=== PATIENT | female | born 1935 | race Caucasian/White ===

== ENCOUNTER 2017-04-02 06:54 | Observation (INO) | payer MEDICARE, OTHER ==
[~2017-04-02] VITALS: Ht 157.5 cm; Wt 52.3 kg
[~2017-04-02 06:54] MED LIST: CARV25TA79 PO; LEVO75TA5 PO; LOSA50TA6 PO; MEVA40 PO; PANT40TA4 PO; WARF4TAB52 PO
[2017-04-02] MEDS ORDERED: morphine 4 MG/ML VIAL IV STA (07:10)
[2017-04-02] MEDS ORDERED: ONDANSETRON 4 MG INJ IV STA (07:10)
[2017-04-02] MEDS ORDERED: SOD CHLORIDE 0.9% 1,000 ML IV STA (07:10)
--- NOTE | 2017-04-02 07:24 | ERA ---
ER Documentation Chief Complaint Date/Time DATE: 04/02/17 TIME: 07:23 Chief Complaint SYNCOPAL EPISODE WITH R ARM PAIN. NO NEURO DEF. NO CP OR SOB. HPI 82-year-old woman brought in by EMS for syncopal episode while at her boarding care facility. She states it occurred after getting up from bed she felt extremely dizzy and then fell back down onto her bed injuring her right thigh. She was unable to ambulate after the syncopal episode. There was no loss of bowel or bladder control, no recent fevers or chills, no complaints of chest pain or shortness of breath. Patient was transported here by EMS without further complications. ROS All systems reviewed and are negative except as per history of present illness. Medications Home Meds Reported Medications Warfarin Sodium* (Coumadin*) 2 Mg Tablet, 2 MG PO DAILY, TAB EXCEPT NONE ON Friday04/02/17 Levothyroxine Sodium* (Levothyroxine Sodium*) 75 Mcg Tablet, 75 MCG PO BEFORE BREAKFAST, #30 TAB 06/28/16 Pantoprazole* (Pantoprazole*) 40 Mg Tablet.dr, 40 MG PO DAILY, TAB 06/28/16 Losartan Potassium* (Losartan Potassium*) 50 Mg Tablet, 50 MG PO DAILY, TAB 06/28/16 Discontinued Reported Medications Lovastatin (Lovastatin) 40 Mg Tablet, 40 MG PO HS, TAB 06/28/16 Warfarin Sodium* (Warfarin Sodium*) 4 Mg Tablet, 2 MG PO DAILY, TAB 06/28/16 Carvedilol* (Carvedilol*) 25 Mg Tablet, 25 MG PO BID, #60 TAB 06/28/16 Allergies Allergies: Coded Allergies: No Known Allergy (Unverified , 04/02/17) PMhx/Soc Previous ST elevation myocardial infarction status post PCI, anemia, acute kidney injury, hypothyroidism, hypertension, previous spine surgery, paroxysmal atrial fibrillation, left ventricular dysfunction Anesthesia Reaction: No Hx Neurological Disorder: No Hx Respiratory Disorders: No Hx Cardiac Disorders: Yes (HTN, Pacemaker) Hx Psychiatric Problems: No Hx Alcohol Use: No Hx Substance Use: No Hx Tobacco Use: No FmHx Family History: No diabetes Physical Exam Vitals Vital Signs Date Time Temp Pulse Resp B/P Pulse Ox O2 Delivery O2 Flow Rate FiO2 04/02/17 09:29 70 18 151/75 98 Room Air 04/02/17 07:08 98.0 71 20 161/69 98 Physical Exam GENERAL: Well-developed, well-nourished, well-hydrated, in no apparent distress , looks nontoxic in appearance HEENT: Pale conjunctiva, dry mucous membranes, no cervical spine tenderness or step-off deformities, no goiter, no jaundice or icterus, extraocular movements intact without pain. No submandibular induration, and no pharyngeal erythema NEURO: Alert and oriented 3, cranial nerves II through XII intact bilaterally, pupils equal round reactive to light, no focal deficits or facial asymmetry, sensation intact distally Strength 5/5 in upper and lower extremities bilaterally CARDIAC: Regular rate and rhythm, no murmurs rubs or gallops LUNGS: Clear bilaterally no wheezing crackles or stridor ABDOMEN: Soft nontender, no guarding, no rigidity, no rebound, no psoas sign no obturator sign. Normoactive bowel sounds SKIN: Warm and dry to touch, no abrasions, contusions, or hematomas, no lacerations, no ecchymosis, no target lesions, and without ulcers EXTREMITIES: No clubbing cyanosis or edema, calves are bilaterally symmetrical, no Homans sign, no popliteal cord sign. Distal pulses equal and bilateral PSYCH: Normal affect without agitation or irritability Result Diagram: 04/02/1771904/02/17 07 Results 24 hrs Laboratory Tests Test 04/02/17 07:20 04/02/17 08:00 White Blood Count 11.810^3/ul Red Blood Count 3.3110^6/ul Hemoglobin 10.4g/dl Hematocrit 31.4% Mean Corpuscular Volume 94.9fl Mean Corpuscular Hemoglobin 31.4pg Mean Corpuscular Hemoglobin Concent 33.1g/dl Red Cell Distribution Width 13.5% Platelet Count 69889^3/UL Mean Platelet Volume 11.6fl Neutrophils % 75.8% Lymphocytes % 17.0% Monocytes % 5.8% Eosinophils % 0.8% Basophils % 0.3% Nucleated Red Blood Cells % 0.0/100WBC Neutrophils # 9.010^3/ul Lymphocytes # 2.010^3/ul Monocytes # 0.710^3/ul Eosinophils # 0.110^3/ul Basophils # 0.010^3/ul Nucleated Red Blood Cells # 0.010^3/ul Prothrombin Time 20.6Sec Prothrombin Time Ratio 1.6 INR International Normalized Ratio 1.75 Sodium Level 145mmol/L Potassium Level 4.6mmol/L Chloride Level 108mmol/L Carbon Dioxide Level 26mmol/L Anion Gap 16 Blood Urea Nitrogen 22mg/dl Creatinine 0.93mg/dl Glucose Level 109mg/dl Calcium Level 10.1mg/dl Total Bilirubin 0.5mg/dl Direct Bilirubin 0.00mg/dl Indirect Bilirubin 0.5mg/dl Aspartate Amino Transf (AST/SGOT) 45IU/L Alanine Aminotransferase (ALT/SGPT) 29IU/L Alkaline Phosphatase 41IU/L Troponin I < 0.012ng/ml Total Protein 7.4g/dl Albumin 4.5g/dl Globulin 2.90g/dl Albumin/Globulin Ratio 1.55 Lipase 83U/L Urine Color LT. YELLOW Urine Clarity CLEAR Urine pH 7.5 Urine Specific [place] 1.010 Urine Ketones NEGATIVE Urine Nitrite NEGATIVE Urine Bilirubin NEGATIVE Urine Urobilinogen 0.2 E.U./dL Urine Leukocyte Esterase NEGATIVE Urine Microscopic RBC 5-10/HPF Urine Microscopic WBC 5-10/HPF Urine Epithelial Cells MODERATE Urine Bacteria MANY Urine Hemoglobin NEGATIVE Urine Glucose NEGATIVE% Urine Total Protein TRACE Current Medications Medications (Trade) Dose Ordered Sig/Rajwinder Route PRN Reason Start Time Stop Time Status Last Admin Dose Admin Sodium Chloride (NS) 1,000 ml @ 1,000 mls/hr Q1H STAT IV 04/02/17 07:10 04/02/17 08:09 DC 04/02/17 07:26 Morphine Sulfate (morphine) 4 mg ONCE STAT IV 04/02/17 07:10 04/02/17 07:13 DC 04/02/17 07:23 Ondansetron HCl (Zofran Inj) 4 mg ONCE STAT IV 04/02/17 07:10 04/02/17 07:13 DC 04/02/17 07:22 Hydromorphone HCl (Dilaudid) 1 mg ONCE STAT IV 04/02/17 08:23 04/02/17 08:24 DC 04/02/17 08:28 Procedures/[facility] IV line was established patient was placed on patient monitor rhythm strip revealed a sinus rhythm at about 70 bpm with upright P and T waves. Patient was afebrile. EKG performed, read by me: 70 bpm, normal sinus rhythm, normal axis, no acute ST segment changes, narrow QRS complex, with good R-wave progression in precordial leads. One view chest x-ray performed, read by me there is a pacemaker in the right chest and atelectatic changes bilaterally, no acute infiltrates, no pneumothorax. I treated the patient for dehydration using 1 L normal saline intravenously, she also received morphine 4 mg IV and Zofran 4 mg IV for hip pain. She later required hydromorphone 1 mg IV. X-ray right femur 2V Interpreted by me: Bones: No fracture Joints: No dislocation Foreign body: None X-ray Pelvis 1V Interpreted by me: Bones: No fracture Joints: No dislocation Foreign body: None CBC revealed mild anemia with a hemoglobin of 10, electrolytes revealed dehydration with a BUN/creatinine of 22/0.9, liver function tests are normal, troponin was negative. Urine analysis was negative for infection. Patient will be admitted to telemetry setting for continued medical management, rehydration, and cardiology consultation Departure Diagnosis: Primary Impression: Syncope Qualified Code: R55 - Syncope, unspecified syncope type Additional Impressions: Dehydration Hip sprain Qualified Code: S73.101A - Hip sprain, right, initial encounter Unable to ambulate Condition: SAUMYA Israel MD Apr 02, 2017 07:24
[2017-04-02 07:54] LABS: ADD SCAN DIFF NO
[2017-04-02 07:56] LABS: BASOPHILS % 0.3 % (0.0-2.0); EOSINOPHILS # 0.1 10^3/ul (0.0-0.5); EOSINOPHILS % 0.8 % (0.0-7.0); HEMATOCRIT 31.4 % (37.0-47.0); HEMOGLOBIN 10.4 g/dl (12.0-16.0); MEAN CORPUSCULAR HEMOGLOBIN 31.4 pg (29.0-33.0); MEAN CORPUSCULAR HGB CONC 33.1 g/dl (32.0-37.0); MEAN CORPUSCULAR VOLUME 94.9 fl (82.0-101.0); MEAN PLATELET VOLUME 11.6 fl (7.4-10.4); MONOCYTE # 0.7 10^3/ul (0.3-0.9); MONOCYTES % 5.8 % (0.0-11.0); NEUTROPHILS % 75.8 % (39.0-77.0); PLATELET COUNT 238 10^3/UL (140-415); RED BLOOD COUNT 3.31 10^6/ul (4.20-5.40); RED CELL DISTRIBUTION WIDTH 13.5 % (11.5-14.5); WHITE BLOOD COUNT 11.8 10^3/ul (4.8-10.8)
--- NOTE | 2017-04-02 07:57 | RADRPT ---
PROCEDURE: XR Chest. CLINICAL INDICATION: fall TECHNIQUE: Single frontal view of the chest was obtained. COMPARISON: Chest x-ray from 09/11/2013 FINDINGS: A right -sided pacemaker is again noted. The aortic arch is calcified. The heart and mediastinum are within normal limits. The lungs are hyperexpanded with flattening of the diaphragm. Mild prominence of interstitial markings is likely due to chronic / senescent changes. No definite focal infiltrates are identified. There is no significant pleural effusion or pneumothorax. IMPRESSION: Hyperexpanded lungs without focal infiltrates or effusions. Correlation for COPD is recommended. Right-sided pacemaker. Aortic atherosclerosis. RPTAT: EE Physician Rosa Date Time Electronically viewed and signed by Elias Flores Physician on 04/02/2017 07:57 /
--- NOTE | 2017-04-02 07:59 | RADRPT ---
PROCEDURE: Pelvis x-ray CLINICAL INDICATION: Pain TECHNIQUE: Single AP view of the pelvis performed. COMPARISON: None FINDINGS: Posterior spinal fusion hardware and disk spacers are noted in the lumbar spine. There is decreased osseous mineralization. No fracture or osseous lesion identified. There are moderate degenerative changes of bilateral hip joints including joint space narrowing. Unremarkable soft tissues. RPTAT: AA IMPRESSION: Decreased osseous mineralization without evidence of acute fracture. Moderate degenerative changes of bilateral hip joints. Spinal fusion hardware in the lumbar spine. Physician Rosa Date Time Electronically viewed and signed by Elias Flores Physician on 04/02/2017 07:59 /
[2017-04-02 08:15] LABS: ALANINE AMINOTRANSFERASE 29 IU/L (13-69); ALBUMIN 4.5 g/dl (3.3-4.9); ALBUMIN/GLOBULIN RATIO 1.55; ALKALINE PHOSPHATASE 41 IU/L (42-121); ANION GAP 16 (8-16); ASPARTATE AMINO TRANSFERASE 45 IU/L (15-46); BILIRUBIN,INDIRECT 0.5 mg/dl (0-1.1); BILIRUBIN,TOTAL 0.5 mg/dl (0.2-1.3); BLOOD UREA NITROGEN 22 mg/dl (7-20); CALCIUM 10.1 mg/dl (8.4-10.2); CARBON DIOXIDE 26 mmol/L (21-31); CHLORIDE 108 mmol/L (97-110); CREATININE 0.93 mg/dl (0.44-1.00); GLUCOSE 109 mg/dl (70-220); POTASSIUM 4.6 mmol/L (3.5-5.1); SODIUM 145 mmol/L (135-144); TOTAL PROTEIN 7.4 g/dl (6.1-8.1)
[2017-04-02 08:22] LABS: INR 1.75; PROTIME 20.6 Sec (12.2-14.2); PT RATIO 1.6
[2017-04-02] MEDS ORDERED: HYDROmorphONE 1 MG/ML SYG IV STA (08:23)
[2017-04-02 08:29] LABS: TROPONIN-I < 0.012 ng/ml (0.00-0.12)
[2017-04-02 08:45] LABS: ADD UMIC YES; UR BILIRUBIN (Dip) NEGATIVE (NEGATIVE); UR BLOOD (Dip) NEGATIVE (NEGATIVE); UR CLARITY CLEAR (CLEAR); UR COLOR LT. YELLOW (YELLOW); UR GLUCOSE (Dip) NEGATIVE (NEGATIVE); UR KETONES (Dip) NEGATIVE (NEGATIVE); UR LEUKOCYTE ESTERASE (Dip) NEGATIVE (NEGATIVE); UR NITRITE (Dip) NEGATIVE (NEGATIVE); UR TOTAL PROTEIN (Dip) TRACE (NEGATIVE); UR UROBILINOGEN (Dip) 0.2 E.U./dL (0.1-1.0)
--- NOTE | 2017-04-02 09:05 | RADRPT ---
PROCEDURE: XR Right Femur CLINICAL INDICATION: Pain status post fall TECHNIQUE: AP and lateral radiographs were submitted. COMPARISON: None FINDINGS: Osseous structures: appear well mineralized and intact with no fracture or osseous destruction evid ent. Fixation hardware is seen within the sacrum. There is a traction spur off the anterior superio r patella. Joint spaces: are well maintained with no significant erosion or spurring evident. There is no sig nificant joint effusion Soft tissues: Vascular calcifications noted. A Lucero catheter is in place. IMPRESSION: 1. No acute fracture or dislocation is evident. 2. Fixation hardware seen within the sacrum. 3. Traction spur seen off the anterior superior patella. Physician Oneil Date Time Electronically viewed and signed by Physician Oneil on 04/02/2017 09:05 /
[2017-04-02 09:15] LABS: UR BACTERIA MANY
[2017-04-02] MEDS ORDERED: WARF2TAB PO (09:20)
--- NOTE | 2017-04-02 11:18 | CONS ---
Date/Time of Note Date/Time of Note DATE: 04/02/17 TIME: 11:10 Assessment/Plan Assessment/Plan Additional Assessment/Plan Syncope Paroxysmal atrial fibrillation on anticoagulation History of pacemaker Hypertension Possible dehydration/hypovolemia -On review of laboratory studies, patient with mild hypernatremia and elevated BUN/creatinine ratio concerning for hypovolemia. We order gentle IV hydration. Patient with pacemaker, would request interrogation (SustainU device) . Check echocardiogram, continue telemetry monitoring to rule out any arrhythmias. Consultation Date/Type/Reason Admit Date/Time Type of Consultation: cv Reason for Consultation Syncope Hx of Present Illness This is an 82-year-old female with past medical history of paroxysmal atrial fibrillation on anticoagulation, pacemaker, hypertension who presents after a syncopal episode. Patient woke up this morning in her normal state of health. She got up out of bed and was arranging her closed with a day. While doing this , she became lightheaded with dizziness. She denies any shortness of breath or palpitations. She felt that she was near "passing out" so she walked to the bed and lie down. She thinks she lost consciousness. When she woke up, she was sweaty but denied any tongue trauma, incontinence. She lives in assisted living and contacted the facility and she was brought to the emergency room for further evaluation and care. She feels much better now and denies any complaints of dizziness, lightheadedness. She denies exertional chest pain or shortness of breath. She denies any abdominal pain. She has been complaining of a hoarse voice off and on. 12 point review of systems was performed with all pertinent positives and negatives mentioned above and all else is negative Past Medical History Paroxysmal atrial fibrillation Hypertension Past Surgical History Pacemaker Spine surgery Family History Significant Family History: no pertinent family hx Social History Smoking Status: Never smoker Other Social History Lives in assisted living Exam/Review of Systems Vital Signs Vitals Vital Signs Date Time Temp Pulse Resp B/P Pulse Ox O2 Delivery O2 Flow Rate FiO2 04/02/17 09:29 70 18 151/75 98 Room Air 04/02/17 07:08 98.0 Exam No apparent distress Constitutional: alert, frail, oriented Head: normocephalic Neck: supple Respiratory: clear to auscultation, normal air movement Cardiovascular: other (S1-S2 heard), regular rate and rhythm, systolic murmur ( Faint early peaking systolic murmur) Gastrointestinal: bowel sounds, non-tender, other (No guarding), soft Extremities: edema (No), other (No cyanosis) Results Result Diagram: 04/02/17 0720 04/02/17 0720 Results 24 hrs Laboratory Tests Test 04/02/17 07:20 04/02/17 08:00 White Blood Count 11.8 H Red Blood Count 3.31 L Hemoglobin 10.4 L Hematocrit 31.4 L Mean Corpuscular Volume 94.9 Mean Corpuscular Hemoglobin 31.4 Mean Corpuscular Hemoglobin Concent 33.1 Red Cell Distribution Width 13.5 Platelet Count 238 Mean Platelet Volume 11.6 #H Neutrophils % 75.8 Lymphocytes % 17.0 Monocytes % 5.8 Eosinophils % 0.8 Basophils % 0.3 Nucleated Red Blood Cells % 0.0 Neutrophils # 9.0 H Lymphocytes # 2.0 Monocytes # 0.7 Eosinophils # 0.1 Basophils # 0.0 Nucleated Red Blood Cells # 0.0 Prothrombin Time 20.6 H Prothrombin Time Ratio 1.6 INR International Normalized Ratio 1.75 Sodium Level 145 H Potassium Level 4.6 Chloride Level 108 Carbon Dioxide Level 26 Anion Gap 16 Blood Urea Nitrogen 22 H Creatinine 0.93 Glucose Level 109 Calcium Level 10.1 Total Bilirubin 0.5 Direct Bilirubin 0.00 Indirect Bilirubin 0.5 Aspartate Amino Transf (AST/SGOT) 45 Alanine Aminotransferase (ALT/SGPT) 29 Alkaline Phosphatase 41 L Troponin I < 0.012 Total Protein 7.4 Albumin 4.5 Globulin 2.90 Albumin/Globulin Ratio 1.55 Lipase 83 Urine Color LT. YELLOW Urine Clarity CLEAR Urine pH 7.5 Urine Specific [place] 1.010 Urine Ketones NEGATIVE Urine Nitrite NEGATIVE Urine Bilirubin NEGATIVE Urine Urobilinogen 0.2 E.U./dL Urine Leukocyte Esterase NEGATIVE Urine Microscopic RBC 5-10 Urine Microscopic WBC 5-10 Urine Epithelial Cells MODERATE Urine Bacteria MANY Urine Hemoglobin NEGATIVE Urine Glucose NEGATIVE Urine Total Protein TRACE Procedures Procedures ECG with a paced rhythm at 70 bpm. QRS 84 ms, no significant ischemic STT wave abnormalities Malik Johansen DO Apr 02, 2017 11:18
[2017-04-02] MEDS ORDERED: SOD CHLORIDE 0.9% 1,000 ML IV SCH (11:23)
--- NOTE | 2017-04-02 11:50 | RADRPT ---
Echocardiogram Report Patient Name: ANASTASIYA SCOTT Gender: Female Date: 1935 Study Date: 02-Apr-2017 Upper Cutter Machine: Krissy [facility] Location: [facility] Ref. Physician: MALIK JOHANSEN Quality: Adequate Procedures: Transthoracic echocardiogram with complete 2D, M-Mode, and doppler examination. Indications: Syncope. 2D/M Mode Doppler Measurement Value Normal Ranges Measurement Value Normal Ranges LVIDd 2D 4.6 3.5 - 5.6 cm AV Peak Alok 1.3 m/sec LVIDs 2D 3.6 2.1 - 4.1 cm AV Peak PG 7.0 mmHg LVPWd 2D 0.9 0.6 - 1.1 cm LVOT Peak Alok 0.9 m/sec IVSd 2D 0.9 0.6 - 1.1 cm LVOT Peak PG 3.4 mmHg AoR Diam 2D 2.1 2.0 - 3.7 cm MV E Peak Alok 0.7 m/sec EDV 2D 97.0 cm3 MV A Peak Alok 0.8 m/sec ESV 2D 45.7 cm3 MV E/A 0.8 LA Dimen 2D 3.4 2.3 - 4.0 cm MV Decel Time 227 msec MV Decel Coffee 3 MV E/A 0.8 TR Peak Alok 3.1 m/sec TR Peak PG 38.2 mmHg RVSP 41.0 mmHg Findings Left Ventricle: Normal left ventricular systolic function. Normal left ventricular cavity size. Normal left ventricular wall thickness. Ejection fraction is visually estimated at 55 %. Tissue Doppler/Mitral Doppler indices are consistent with impaired relaxation (Stage I diastolic dysfunction). Right Ventricle: Normal right ventricular size. Normal right ventricular systolic function. Pacemaker right heart. Left Atrium: The left atrium is normal in size. Right Atrium: The right atrium is normal in size. Mitral Valve: Mitral valve leaflets appear mildly thickened. Mild mitral valve regurgitation. Aortic Valve: Normal appearance of the aortic valve. No significant aortic stenosis or insufficiency. Tricuspid Valve: Normal appearance of the tricuspid valve. Estimated peak PA systolic pressure 41 mmHg. There is mild tricuspid regurgitation. Pericardium: Normal pericardium with no significant pericardial effusion. Aorta: Normal aortic root. IVC: Normal size and normal respiratory collapse consistent with normal right atrial pressure. Conclusions Normal left ventricular systolic function. Normal left ventricular cavity size. Normal left ventricular wall thickness. Ejection fraction is visually estimated at 55 %. Tissue Doppler/Mitral Doppler indices are consistent with impaired relaxation (Stage I diastolic dysfunction). Normal right ventricular size. Normal right ventricular systolic function. The left atrium is normal in size. The right atrium is normal in size. Mild mitral valve regurgitation. Estimated peak PA systolic pressure 41 mmHg. There is mild tricuspid regurgitation. No significant aortic stenosis or insufficiency. Normal pericardium with no significant pericardial effusion. Electronically Signed By: Malik Johansen 02-Apr-2017 11:49:01 07 Patient Name: ANASTASIYA SCOTT Study Date: 02-Apr-2017 [id number]
--- NOTE | 2017-04-02 14:28 | HP ---
Date/Time of Note Date/Time of Note DATE: 04/02/17 TIME: 14:16 Assessment/Plan VTE Prophylaxis VTE Prophylaxis Intervention: other (Warfarin) Lines/Catheters Urinary Cath still in place: Yes Reason Cath still needed: urinary retention Assessment/Plan Problems: (1) Syncope Status: Acute Comment: She will be brought into telemetry and observe for this. Cardiology will evaluate her. I am not entirely certain of the etiology of this but suspect it may have been a dehydrational event. Qualifiers: Syncope type: unspecified Qualified Code: R55 - Syncope, unspecified syncope type (2) Dehydration Status: Acute Comment: Brief IV fluids careful with her ejection fraction. Please note that she actually does have reasonable ejection fraction based on echocardiogram read today she does however have diastolic dysfunction (3) Hypothyroidism Status: Chronic Comment: Continue replacement therapy Qualifiers: Hypothyroidism type: acquired Qualified Code: E03.9 - Acquired hypothyroidism (4) Atrial fibrillation Status: Chronic Comment: She has a pacemaker in place we can use low-dose beta-silvia Qualifiers: Atrial fibrillation type: chronic Qualified Code: I48.2 - Chronic atrial fibrillation (5) Gastro-esophageal reflux disease without esophagitis Status: Chronic Comment: Continue pantoprazole (6) Chronic systolic congestive heart failure Status: Chronic Comment: Based on the echocardiogram the strength of this diagnosis is fair. This is a bit more of diastolic dysfunction. (7) Essential hypertension Status: Chronic Comment: Controlled HPI/ROS Admit Date/Time Admit Date/Time 04/02/2017 Hx of Present Illness 82-year-old single female who now resides at the [facility] [place]. She has moved in their 6 weeks ago after having extended stay in rehab facility after spinal surgery by Dr. Crespo in June 2016. She remains under active treatment with Dr. Duffy and has a new primary care physician Dr. Carrasco. She has a history of prior episodes of syncope. These had resolved when she received a pacemaker. She had otherwise done well. Please note she is not a good historian. Attempts to retrieve information from her primary care physician were on successful as has been on hold for 15 minutes. ROS Constitutional: no complaints Eyes: no complaints ENT: no complaints Respiratory: no complaints Cardiovascular: no complaints (Denies chest pain shortness of breath PND orthopnea or palpitations) Gastrointestinal: no complaints Genitourinary: no complaints Psychological: no complaints Immunologic: no complaints PMH/Family/Social Past Medical History Atrial fibrillation; osteoporosis; hyperlipidemia; usual childhood diseases Medication 1) levothyroxine 75 mcg once a day, 2) pantoprazole 40 mg, 3) Coumadin at variable dosing, 4) losartan 50 mg once a day, 5) Lexapro 10 mg once a day, 6) alprazolam 0.25 mg as needed Medical History: hypertension, hypothyroid Past Surgical History Status post lumbar laminectomy; status post pacemaker Family History Significant Family History: no pertinent family hx (Old history of CVA old history asthma) Social History Born in [place] and raised high school education without experience retired from [employer] she is and now living in a shelter facility [facility] [place]. She has 2 sons there has been issues between the 2 of them Alcohol Use: none Smoking Status: Former smoker Drug Use: none Exam/Review of Systems Vital Signs Vitals Vital Signs Date Time Temp Pulse Resp B/P Pulse Ox O2 Delivery O2 Flow Rate FiO2 04/02/17 12:41 72 18 113/58 95 Room Air 04/02/17 07:08 98.0 Exam Constitutional: alert, oriented Head: atraumatic, normocephalic Eyes: EOMI, nl conjunctiva, nl lids, nl sclera ENMT: nl lips & teeth, nl nasal mucosa & septum Neck: non-tender, supple Respiratory: clear to auscultation, normal air movement, other (Right anterior chest wall subcutaneous pacemaker) Cardiovascular: nl pulses, regular rate and rhythm Gastrointestinal: nl liver, spleen, non-tender, soft Musculoskeletal: nl extremities to inspection, nl gait and stance Neurological: RN WOUND CARE II-XII intact, nl mental status, nl speech, nl strength Skin: nl turgor Labs Result Diagram: 04/02/17 0720 04/02/17 0720 Medications Medications Current Medications Sodium Chloride (NS) 1,000 ml @ 60 mls/hr [id number] IV Last administered on t 11:34; Admin Dose 60 MLS/HR; Start 04/02/17 at 11:23; Stop 04/03/17 at 04:02 DELISA RAJPUT MD Apr 02, 2017 14:26
[2017-04-02] MEDS ORDERED: MAGNESIUM HYDROXIDE 30ML CUP PO PRN (14:30)
[2017-04-02] MEDS ORDERED: LORAZEPAM 0.5 MG TAB PO PRN (14:30)
[2017-04-02] MEDS ORDERED: NACL 0.9% 3 ML SYG IV SCH (14:30)
[2017-04-02] MEDS ORDERED: DOCUSATE SODIUM 100 MG CAP PO PRN (14:30)
[2017-04-02 15:39] LABS: CREATINE KINASE 76 IU/L (23-200)
[2017-04-02 15:53] LABS: CK-MB 2.15 ng/ml (0.0-2.4); TROPONIN-I < 0.012 ng/ml (0.00-0.12)
[2017-04-02] MEDS: METOPROLOL 25 MG TAB PO SCH (20:11)
[2017-04-02] MEDS ORDERED: LEVOTHYROXINE 75 MCG TAB PO SCH (21:00)
[2017-04-02] MEDS ORDERED: ESCITALOPRAM 10 MG TAB PO SCH (21:00)
[2017-04-02 22:15] LABS: CREATINE KINASE 105 IU/L (23-200)
[2017-04-02 22:28] LABS: TROPONIN-I < 0.012 ng/ml (0.00-0.12)
[2017-04-02 22:30] VITALS: PULSE 70
[2017-04-02 22:58] VITALS: Ht 157.5 cm; Wt 52.3 kg
[2017-04-03] VITALS (10 sets, daily range): BP systolic 96–143; BP diastolic 53–65; PULSE 70–74; RESP 18–20
[2017-04-03] MEDS ORDERED: PANTOPRAZOLE (EC) 40 MG TAB PO SCH (06:00)
[2017-04-03 07:46] LABS: ADD SCAN DIFF NO
[2017-04-03 07:55] LABS: BASOPHILS % 0.5 % (0.0-2.0); EOSINOPHILS # 0.1 10^3/ul (0.0-0.5); EOSINOPHILS % 2.2 % (0.0-7.0); HEMATOCRIT 30.1 % (37.0-47.0); HEMOGLOBIN 9.3 g/dl (12.0-16.0); LYMPHOCYTES % 32.7 % (15.0-51.0); MEAN CORPUSCULAR HEMOGLOBIN 30.2 pg (29.0-33.0); MEAN CORPUSCULAR HGB CONC 30.9 g/dl (32.0-37.0); MEAN CORPUSCULAR VOLUME 97.7 fl (82.0-101.0); MEAN PLATELET VOLUME 11.2 fl (7.4-10.4); MONOCYTE # 0.5 10^3/ul (0.3-0.9); NEUTROPHIL # 3.5 10^3/ul (1.6-7.5); NEUTROPHILS % 56.4 % (39.0-77.0); PLATELET COUNT 211 10^3/UL (140-415); RED BLOOD COUNT 3.08 10^6/ul (4.20-5.40); RED CELL DISTRIBUTION WIDTH 13.8 % (11.5-14.5); WHITE BLOOD COUNT 6.2 10^3/ul (4.8-10.8)
[2017-04-03 08:39] LABS: ALBUMIN 3.9 g/dl (3.3-4.9); ALBUMIN/GLOBULIN RATIO 1.77; BILIRUBIN,INDIRECT 0.4 mg/dl (0-1.1); BILIRUBIN,TOTAL 0.4 mg/dl (0.2-1.3); CALCIUM 9.4 mg/dl (8.4-10.2); CREATININE 0.9 mg/dl (0.44-1.00); MAGNESIUM 1.8 mg/dl (1.7-2.5); POTASSIUM 4.4 mmol/L (3.5-5.1); TOTAL PROTEIN 6.1 g/dl (6.1-8.1)
[2017-04-03] MEDS: METOPROLOL 25 MG TAB PO SCH (08:56)
[2017-04-03] MEDS ORDERED: LOSARTAN 50 MG TAB PO SCH (09:00)
[2017-04-03 09:34] LABS: THYROID STIMULATING HORMONE 1.82 MIU/L (0.465-4.680)
--- NOTE | 2017-04-03 13:25 | DS ---
Date/Time of Note Date/Time of Note DATE: 04/03/17 TIME: 13:23 Discharge Summary Admission/Discharge Info Admit Date/Time Apr 02, 2017 at 09:59 Discharge Date/Time 04/03/2017 Final Diagnosis Syncope; organic heart diseasesick sinus syndrome; status post pacemaker; hypothyroidism; hypertension Patient Condition: Good Consults Cardiology Procedures Echocardiogram; cardiac monitoring; rule out [place] protocol. Hx of Present Illness 82-year-old single female who now resides at the [facility]. She has moved in their 6 weeks ago after having extended stay in rehab facility after spinal surgery by Dr. Crespo in June 2016. She remains under active treatment with Dr. Duffy and has a new primary care physician Dr. Carrasco. She has a history of prior episodes of syncope. These had resolved when she received a pacemaker. She had otherwise done well. Please note she is not a good historian. Attempts to retrieve information from her primary care physician were on successful as has been on hold for 15 minutes. Hospital Course This is an 82-year-old female with past medical history of paroxysmal atrial fibrillation on anticoagulation, pacemaker, hypertension who presents after a syncopal episode. Patient woke up this morning in her normal state of health. She got up out of bed and was arranging her closed with a day. While doing this , she became lightheaded with dizziness. She denies any shortness of breath or palpitations. She felt that she was near "passing out" so she walked to the bed and lie down. She thinks she lost consciousness. When she woke up, she was sweaty but denied any tongue trauma, incontinence. She lives in assisted living and contacted the facility and she was brought to the emergency room for further evaluation and care. She feels much better now and denies any complaints of dizziness, lightheadedness. She denies exertional chest pain or shortness of breath. She denies any abdominal pain. She has been complaining of a hoarse voice off and on. Patient was admitted and underwent standard rule out [place] protocol which was negative. Her echocardiogram showed stage I diastolic dysfunction with adequate systolic function. Interrogation of her pacemaker demonstrated normal activity and function. She is stable. I believe what was going on here was a modest degree of dehydration. She is now at a point where she can be discharged back to her skilled living facility. She has no known communicable diseases she is not a hazard to herself or others her rehabilitation potential is fair. Home Meds Reported Medications Warfarin Sodium* (Coumadin*) 2 Mg Tablet, 2 MG PO DAILY, TAB EXCEPT NONE ON Friday04/02/17 Levothyroxine Sodium* (Levothyroxine Sodium*) 75 Mcg Tablet, 75 MCG PO BEFORE BREAKFAST, #30 TAB 06/28/16 Pantoprazole* (Pantoprazole*) 40 Mg Tablet.dr, 40 MG PO DAILY, TAB 06/28/16 Losartan Potassium* (Losartan Potassium*) 50 Mg Tablet, 50 MG PO DAILY, TAB 06/28/16 Discontinued Reported Medications Lovastatin (Lovastatin) 40 Mg Tablet, 40 MG PO HS, TAB 06/28/16 Warfarin Sodium* (Warfarin Sodium*) 4 Mg Tablet, 2 MG PO DAILY, TAB 06/28/16 Carvedilol* (Carvedilol*) 25 Mg Tablet, 25 MG PO BID, #60 TAB 06/28/16 Primary Care Provider Gilson Duffy MD Time spent on discharge: < 30 minutes Pending Labs Laboratory Tests Test 04/02/17 15:00 04/02/17 21:40 04/03/17 07:11 Creatine Kinase 76IU/L (23-200) 105IU/L (23-200) Creatine Kinase Index 2.8 2.6 Creatinine Kinase MB (Mass) 2.15ng/ml (0.0-2.4) 2.70ng/ml (0.0-2.4) Troponin I < 0.012ng/ml (0.00-0.12) < 0.012ng/ml (0.00-0.12) White Blood Count 6.210^3/ul (4.8-10.8) Red Blood Count 3.0810^6/ul (4.20-5.40) Hemoglobin 9.3g/dl (12.0-16.0) Hematocrit 30.1% (37.0-47.0) Mean Corpuscular Volume 97.7fl (82.0-101.0) Mean Corpuscular Hemoglobin 30.2pg (29.0-33.0) Mean Corpuscular Hemoglobin Concent 30.9g/dl (32.0-37.0) Red Cell Distribution Width 13.8% (11.5-14.5) Platelet Count 04162^3/UL (140-415) Mean Platelet Volume 11.2fl (7.4-10.4) Neutrophils % 56.4% (39.0-77.0) Lymphocytes % 32.7% (15.0-51.0) Monocytes % 8.0% (0.0-11.0) Eosinophils % 2.2% (0.0-7.0) Basophils % 0.5% (0.0-2.0) Nucleated Red Blood Cells % 0.0/100WBC (0.0-0.0) Neutrophils # 3.510^3/ul (1.6-7.5) Lymphocytes # 2.010^3/ul (0.8-2.9) Monocytes # 0.510^3/ul (0.3-0.9) Eosinophils # 0.110^3/ul (0.0-0.5) Basophils # 0.010^3/ul (0.0-0.1) Nucleated Red Blood Cells # 0.010^3/ul (0.0-0.0) Sodium Level 142mmol/L (135-144) Potassium Level 4.4mmol/L (3.5-5.1) Chloride Level 108mmol/L (97-110) Carbon Dioxide Level 29mmol/L (21-31) Anion Gap 9 (8-16) Blood Urea Nitrogen 18mg/dl (7-20) Creatinine 0.90mg/dl (0.44-1.00) Glucose Level 92mg/dl (70-220) Calcium Level 9.4mg/dl (8.4-10.2) Magnesium Level 1.8mg/dl (1.7-2.5) Total Bilirubin 0.4mg/dl (0.2-1.3) Direct Bilirubin 0.00mg/dl (0.00-0.20) Indirect Bilirubin 0.4mg/dl (0-1.1) Aspartate Amino Transf (AST/SGOT) 32IU/L (15-46) Alanine Aminotransferase (ALT/SGPT) 30IU/L (13-69) Alkaline Phosphatase 39IU/L (42-121) Total Protein 6.1g/dl (6.1-8.1) Albumin 3.9g/dl (3.3-4.9) Globulin 2.20g/dl (1.3-3.2) Albumin/Globulin Ratio 1.77 Thyroid Stimulating Hormone (TSH) 1.820MIU/L (0.465-4.680) DELISA RAJPUT MD Apr 03, 2017 13:25
--- NOTE | 2017-04-03 13:27 | PDOCDIS ---
Discharge Instructions DIAGNOSIS Discharge Diagnosis: Syncope CONDITION Patient Condition: Good HOME CARE INSTRUCTIONS: Diet Instructions: RegularSpecial Diet: regular ACTIVITY: Activity Restrictions: No Restrictions FOLLOW UP/APPOINTMENTS Appointments Cardiology in 2 weeks; primary care physician in 1 week, DELISA Moura MD Apr 03, 2017 13:27
== END 2017-04-03 16:19 | disposition home or self-care (01) ==
LOC: E/R 06:54 → UNDOADMOB 09:59 → TEL 09:59 → MS4 09:59 → UNDODISOB 04-03 16:19
PROVIDERS: ADMIT Internal Medicine; ATTEND Internal Medicine
DX: R55 Syncope and collapse (principal); I11.0 Hypertensive heart disease with heart failure; I50.22 Chronic systolic (congestive) heart failure; I48.0 Paroxysmal atrial fibrillation; Z79.01 Long term (current) use of anticoagulants; I51.9 Heart disease, unspecified; I49.5 Sick sinus syndrome; I25.2 Old myocardial infarction; E03.9 Hypothyroidism, unspecified; E86.0 Dehydration; K21.9 Gastro-esophageal reflux disease without esophagitis; Z95.0 Presence of cardiac pacemaker
CPT/HCPCS: 36415; 71010; 72170; 73550; 80053; 81001; 82550; 82553; 83690; 83735; 84443; 84484; 85025; 85610; 86850; 86900; 86901; 93005; 93306; 96374; 96375; 99285; G0378; J1170; J2270; J2405; J7030

== ENCOUNTER 2019-04-24 10:16 | Emergency (ER) | payer MEDICARE, OTHER ==
[~2019-04-24] VITALS: Ht 160 cm; Wt 55.3 kg
[~2019-04-24 10:16] MED LIST changes: -CARV25TA79 PO; +LOSA50TA14 PO; -LOSA50TA6 PO; -MEVA40 PO; +WARF2TAB PO; -WARF4TAB52 PO
[2019-04-24 10:27] VITALS: Ht 160 cm; Wt 55.3 kg
[2019-04-24] MEDS ORDERED: ONDANSETRON 4 MG INJ IV STA (12:18)
--- NOTE | 2019-04-24 12:18 | ERD ---
ER Documentation Chief Complaint Chief Complaint nausea and chills x 3 days HPI 84-year-old female history of hypertension, thyroid disease, paroxysmal atrial fib on Coumadin, congestive heart failure, spinal stenosis and pacemaker presents to the ED for evaluation of lightheadedness, with nausea and vomiting. Patient reports a 2 to 3-day history of worsening dizziness which she describes as lightheadedness and not vertiginous symptoms with nausea and one episode of nonbloody nonbilious emesis. Symptoms are accompanied by generalized weakness but no focal weakness or numbness. Denies abdominal pain diarrhea or constipati on. No chest pain, palpitations or shortness of breath. Denies dysuria, polyuria, hematuria or flank pain. No relieving or exacerbating factors. No fevers or chills. ROS All systems reviewed and are negative except as per history of present illness. Medications Home Meds Reported Medications Lovastatin* (Lovastatin*) 20 Mg Tablet, 20 MG PO HS, TAB 04/24/19 Levothyroxine Sodium* (Levothyroxine Sodium*) 50 Mcg Tablet, 50 MCG PO BEFORE BREAKFAST, #30 TAB 04/24/19 Escitalopram Oxalate* (Escitalopram Oxalate*) 10 Mg Tablet, 10 MG PO DAILY, #30 TAB 04/24/19 Warfarin Sodium* (Coumadin*) 1 Mg Tablet, 1 MG PO DAILY, TAB 04/24/19 Pantoprazole* (Pantoprazole*) 40 Mg Tablet.dr, 40 MG PO AC BREAKFAST, TAB 04/24/19 Discontinued Reported Medications Warfarin Sodium* (Coumadin*) 2 Mg Tablet, 2 MG PO DAILY, TAB EXCEPT NONE ON Friday04/02/17 Levothyroxine Sodium* (Levothyroxine Sodium*) 75 Mcg Tablet, 75 MCG PO BEFORE BREAKFAST, #30 TAB 06/28/16 Pantoprazole* (Pantoprazole*) 40 Mg Tablet.dr, 40 MG PO DAILY, TAB 06/28/16 Losartan Potassium* (Losartan Potassium*) 50 Mg Tablet, 50 MG PO DAILY, TAB 06/28/16 Allergies Allergies: Coded Allergies: No Known Allergy (Unverified , 04/24/19) PMhx/Soc History of Surgery: Yes (pacemaker ,LAMINECTOMY 2016,STENT) Anesthesia Reaction: No Hx Neurological Disorder: No Hx Respiratory Disorders: No Hx Cardiac Disorders: Yes (HTN, HIGH CHOLESTEROL) Hx Psychiatric Problems: No Hx Miscellaneous Medical Probl: Yes (HYPOTHYROIDISM) Hx Alcohol Use: No Hx Substance Use: No Hx Tobacco Use: No Smoking Status: Never smoker FmHx No family history relevant to presenting complaint Physical Exam Vitals Vital Signs Date Temp Pulse Resp B/P (MAP) Pulse Ox O2 O2 Flow FiO2 Time Delivery Rate 04/24/19 99.4 81 15 147/99 96 Room Air 15:00 (115) 04/24/19 99.6 70 16 148/64 97 Room Air 13:00 (92) 04/24/19 99.8 81 16 159/58 95 10:27 (91) Physical Exam Const: No acute distress Head: Atraumatic Eyes: Normal Conjunctiva ENT: Normal External Ears, Nose and Mouth. Neck: Full range of motion. No meningismus. Resp: Clear to auscultation bilaterally Cardio: Regular rate and rhythm, no murmurs Abd: Soft, non tender, non distended. Normal bowel sounds Skin: No petechiae or rashes Back: No midline or flank tenderness Ext: No cyanosis, or edema Neur: Awake and alert Psych: Normal Mood and Affect Result Diagram: 04/24/19 1220 04/24/19 1220 Results 24 hrs Laboratory Tests Test 04/24/19 12:20 White Blood Count 7.0 10^3/ul Red Blood Count 3.60 10^6/ul Hemoglobin 11.1 g/dl Hematocrit 34.1 % Mean Corpuscular Volume 94.7 fl Mean Corpuscular Hemoglobin 30.8 pg Mean Corpuscular Hemoglobin Concent 32.6 g/dl Red Cell Distribution Width 13.4 % Platelet Count 241 10^3/UL Mean Platelet Volume 10.6 fl Immature Granulocytes % 0.300 % Neutrophils % 76.7 % Lymphocytes % 19.2 % Monocytes % 3.4 % Eosinophils % 0.1 % Basophils % 0.3 % Nucleated Red Blood Cells % 0.0 /100WBC Immature Granulocytes # 0.020 10^3/ul Neutrophils # 5.4 10^3/ul Lymphocytes # 1.4 10^3/ul Monocytes # 0.2 10^3/ul Eosinophils # 0.0 10^3/ul Basophils # 0.0 10^3/ul Nucleated Red Blood Cells # 0.0 10^3/ul Prothrombin Time 24.2 Sec Prothrombin Time Ratio 1.9 INR International Normalized Ratio 2.16 Urine Color YELLOW Urine Clarity CLEAR Urine pH 5.0 Urine Specific [place] 1.021 Urine Ketones NEGATIVE mg/dL Urine Nitrite NEGATIVE mg/dL Urine Bilirubin NEGATIVE mg/dL Urine Urobilinogen NEGATIVE mg/dL Urine Leukocyte Esterase NEGATIVE Michelle/ul Urine Hemoglobin NEGATIVE mg/dL Urine Glucose NEGATIVE mg/dL Urine Total Protein NEGATIVE mg/dl Sodium Level 142 mmol/L Potassium Level 4.2 mmol/L Chloride Level 106 mmol/L Carbon Dioxide Level 27 mmol/L Anion Gap 9 Blood Urea Nitrogen 21 mg/dl Creatinine 1.30 mg/dl Est Glomerular Filtrat Rate mL/min mL/min Glucose Level 109 mg/dl Calcium Level 9.7 mg/dl Total Bilirubin 0.4 mg/dl Direct Bilirubin 0.00 mg/dl Indirect Bilirubin 0.4 mg/dl Aspartate Amino Transf (AST/SGOT) 30 IU/L Alanine Aminotransferase (ALT/SGPT) 25 IU/L Alkaline Phosphatase 40 IU/L Troponin I < 0.012 ng/ml Total Protein 7.8 g/dl Albumin 4.5 g/dl Globulin 3.30 g/dl Albumin/Globulin Ratio 1.36 Lipase 210 U/L Current Medications Medications Dose Sig/Rajwinder Start Time Status Last (Trade) Ordered Route PRN Stop Time Admin Dose Reason Admin Ondansetron 4 mg ONCE STAT 04/24/19 DC 04/24/19 HCl (Zofran IV 12:18 12:26 Inj) 04/24/19 12:20 Procedures/MDM DOCUMENTS REVIEWED: ED nurse, prior ED and prior records including a previous admission for syncope EKG: Time: 1244. Atrial paced rhythm. No acute ST elevation or depression. No ectopy. My Interpretation IMAGING: PROCEDURE: XR Chest. CLINICAL INDICATION: Abdominal pain TECHNIQUE: Frontal chest x-ray was obtained. COMPARISON: Chest x-ray September 11, 2013 FINDINGS: The heart is not enlarged. Mediastinum is not widened. Noted is a dual lead pacemaker. There are coronary artery calcifications. Calcified plaque is seen in the aorta. No hilar masses seen. Lungs are clear of any infiltrates. There is no effusion or pneumothorax. The osseous structures appear normal. IMPRESSION: No evidence for active cardiopulmonary disease. .Prosper Clark MD, MD Date Time Electronically viewed and signed by .Prosper Clark MD, MD on 04/24/2019 13:05 .A/ PROCEDURE: CT Brain without contrast. CLINICAL INDICATION: Dizziness TECHNIQUE: A CT of the brain was performed on a multidetector CT scanner utilizing axial imaging from the skull base through the vertex without IV contrast. Multiplanar reformatted images were made. Images were reviewed on a PACS workstation. The CTDIvol is 38 mGy and the DLP is 634 mGycm. DICOM images are available. One or more of the following dose reduction techniques were utilized: 1.) Automated exposure control 2.) Adjustment of the mA +/- kV according to patient's size 3.) Use of iterative reconstruction technique. COMPARISON: None FINDINGS: There is no intracranial hemorrhage or midline shift. No extra-axial fluid collection is seen. There is moderate to severe diffuse cerebral volume loss with sulcal and ventricular dilatation. Periventricular white matter disease is seen in both cerebral hemispheres with no associated mass effect. Noted is a 19 mm well-demarcated isotope hyperdense spherical mass interposed between the medial aspect of the right temporal lobe and the mid brain adjacent to the petrous portion of the temporal bone. This most likely represents a meningioma. There is no associated vasogenic edema or significant mass effect. Ventricles are of normal configuration. the liz white matter differentiation appears well- preserved. No hemorrhage is detected. The visualized paranasal sinuses and osseous structures are grossly unremarkable. IMPRESSION: No intracranial hemorrhage or evidence of acute transcortical infarct. Atrophy. White matter disease compatible with chronic small vessel ischemia. Probable 19 mm meningioma interposed between right temporal lobe and mid brain. Pre and post contrast MRI could be performed for more definitive diagnosis if clinically indicated. .Prosper Clark MD, MD Date Time Electronically viewed and signed by .Prosper Clark MD, MD on 04/24/2019 13:11 .A/ ED COURSE: [] REEXAMINATION/REEVALUATION: Time: [] MEDICAL DECISION MAKIN-year-old female history of hypertension, thyroid disease, paroxysmal atrial fib on Coumadin, congestive heart failure, spinal stenosis and pacemaker presents to the ED for evaluation of lightheadedness, with nausea and vomiting. Patient reports a 2 to 3-day history of worsening dizziness which he describes as lightheadedness and not vertiginous symptoms with nausea and one episode of nonbloody nonbilious emesis. CBC reveals borderline anemia but no leukocytosis or thrombocytopenia. Chemistry remarkable for elevated BUN/creatinine consistent with mild acute kidney disease likely secondary to dehydration. CT of the brain with findings above reveals a 19 mm mass which will need further evaluation with MRI. Abdominal exam is completely benign without tenderness, rebound, guarding, signs of peritonitis or an acute intra-abdominal process including but not limited to mesenteric ischemia, abdominal aortic aneurysm, bowel obstruction or cholecystitis hence CT scan is not indicated. Shared decision-making with the patient and son who was at the bedside. Patient needs MRI to further evaluate the intracranial mass patient is offered admission but as this can be done urgently as an outpatient they prefer discharge. Stable for discharge with precautionary instructions and outpatient follow-up as counseled. Counseled patient and family regarding diagnostic workup, diagnosis and need for followup. Understands to return to ED if symptoms recur, worsen or any other concerns. Departure Diagnosis: Primary Impression: Weakness Additional Impression: Mild nausea and vomiting Condition: Stable NOA MG MD Apr 24, 2019 12:18
[2019-04-24] MEDS ORDERED: ESCI10TA48 PO (14:20)
[2019-04-24] MEDS ORDERED: WARF1TAB PO (14:20)
[2019-04-24] MEDS ORDERED: PANT40TA4 PO (14:20)
[2019-04-24] MEDS ORDERED: LEVO50TA7 PO (14:21)
[2019-04-24] MEDS ORDERED: LOVA20TA PO (14:22)
[2019-04-24] MEDS ORDERED: ONDA4TAB8 PO (16:07)
[2019-04-24 16:11] VITALS: BP 135/78; PULSE 78; RESP 15
== END 2019-04-24 16:35 | disposition home or self-care (01) ==
LOC: E/R 10:16
DX: R11.2 Nausea with vomiting, unspecified (principal); R53.1 Weakness; E03.9 Hypothyroidism, unspecified; I11.0 Hypertensive heart disease with heart failure; I50.9 Heart failure, unspecified; I48.91 Unspecified atrial fibrillation; R42 Dizziness and giddiness; R40.2142 Coma scale, eyes open, spontaneous, at arrival to emergency department; R40.2362 Coma scale, best motor response, obeys commands, at arrival to emergency department; R40.2252 Coma scale, best verbal response, oriented, at arrival to emergency department; Z95.0 Presence of cardiac pacemaker; Z79.01 Long term (current) use of anticoagulants
CPT/HCPCS: 36415; 70450; 71045; 80053; 81003; 83690; 84484; 85025; 85610; 93005; 96374; 99285; J2405

== ENCOUNTER 2019-04-27 11:46 | Emergency (ER) | payer MEDICARE, OTHER ==
[~2019-04-27] VITALS: Ht 160 cm; Wt 55.3 kg
[~2019-04-27 11:46] MED LIST changes: +ESCI10TA48 PO; +LEVO50TA7 PO; -LEVO75TA5 PO; -LOSA50TA14 PO; +LOVA20TA PO; +ONDA4TAB8 PO; +WARF1TAB PO; -WARF2TAB PO
[2019-04-27 12:01] VITALS: Ht 160 cm; Wt 55.3 kg
[2019-04-27] MEDS ORDERED: CEPH-443 PO (13:28)
[2019-04-27] MEDS ORDERED: CEPHALEXIN 500 MG CAP PO ONE (13:30)
--- NOTE | 2019-04-27 13:33 | ERD ---
ER Documentation Chief Complaint Chief Complaint WEAKNESS AND NAUSEA HPI 84-year-old female presents to the emergency room because of generalized weakness. She states that when she wakes up in the morning she feels weak. She reported to the triage nurse that she had nausea but she denies this to me. She states that she feels better. She denies any headache chest pain or shortness of breath. No hematemesis or melena. No pleuritic pain. The patient was seen here several days ago with similar complaints, negative work-up other than a CT with possible meningioma. Patient denies any headache or slurred speech. Otherwise no complaints currently. ROS All systems reviewed and are negative except as per history of present illness. Medications Home Meds Active Scripts Cephalexin* (Keflex*) 500 Mg Capsule, 500 MG PO BID for 7 Days, CAP Prov:TRISHA OZUNA MD 04/27/19 Ondansetron Hcl* (Zofran*) 4 Mg Tablet, 4 MG PO Q6H for NAUSEA AND/OR VOMITING, #12 TAB Prov:NOA MG MD 04/24/19 Reported Medications Lovastatin* (Lovastatin*) 20 Mg Tablet, 20 MG PO HS, TAB 04/24/19 Levothyroxine Sodium* (Levothyroxine Sodium*) 50 Mcg Tablet, 50 MCG PO BEFORE BREAKFAST, #30 TAB 04/24/19 Escitalopram Oxalate* (Escitalopram Oxalate*) 10 Mg Tablet, 10 MG PO DAILY, #30 TAB 04/24/19 Warfarin Sodium* (Coumadin*) 1 Mg Tablet, 1 MG PO DAILY, TAB 04/24/19 Pantoprazole* (Pantoprazole*) 40 Mg Tablet.dr, 40 MG PO AC BREAKFAST, TAB 04/24/19 Discontinued Reported Medications Warfarin Sodium* (Coumadin*) 2 Mg Tablet, 2 MG PO DAILY, TAB EXCEPT NONE ON Friday04/02/17 Levothyroxine Sodium* (Levothyroxine Sodium*) 75 Mcg Tablet, 75 MCG PO BEFORE BREAKFAST, #30 TAB 06/28/16 Pantoprazole* (Pantoprazole*) 40 Mg Tablet.dr, 40 MG PO DAILY, TAB 06/28/16 Losartan Potassium* (Losartan Potassium*) 50 Mg Tablet, 50 MG PO DAILY, TAB 06/28/16 Allergies Allergies: Coded Allergies: No Known Allergy (Unverified , 04/27/19) PMhx/Soc History of Surgery: Yes (pacemaker ,LAMINECTOMY 2016,STENT) Anesthesia Reaction: No Hx Neurological Disorder: No Hx Respiratory Disorders: No Hx Cardiac Disorders: Yes (HTN, HIGH CHOLESTEROL) Hx Psychiatric Problems: No Hx Miscellaneous Medical Probl: Yes (HYPOTHYROIDISM) Hx Alcohol Use: No Hx Substance Use: No Hx Tobacco Use: No Smoking Status: Never smoker FmHx Family History: No diabetes Physical Exam Vitals Vital Signs Date Temp Pulse Resp B/P (MAP) Pulse Ox O2 O2 Flow FiO2 Time Delivery Rate 04/27/19 99.0 70 16 151/65 99 12:01 (93) Physical Exam General: Well developed, well nourished, no acute distress Head: Normocephalic, atraumatic. Eyes: Pupils equally reactive, EOM intact ENT: Moist mucous membranes Neck: Supple, no lymphadenopathy Respiratory: Lungs clear bilaterally, no distress Cardiovascular: RRR, no murmurs, rubs, or gallops Abdominal: Soft, non-tender, non-distended, no peritoneal signs : Deferred MSK: No edema, no unilateral swelling, 5/5 strength Neurologic: Alert and oriented, moving all extremities, normal speech, no focal weakness, no cerebellar signs Skin: No rash Psych: Normal mood Result Diagram: 04/27/19 1237 04/27/19 1237 Results 24 hrs Laboratory Tests Test 04/27/19 12:37 White Blood Count 9.7 10^3/ul Red Blood Count 3.89 10^6/ul Hemoglobin 12.2 g/dl Hematocrit 36.8 % Mean Corpuscular Volume 94.6 fl Mean Corpuscular Hemoglobin 31.4 pg Mean Corpuscular Hemoglobin Concent 33.2 g/dl Red Cell Distribution Width 13.3 % Platelet Count 272 10^3/UL Mean Platelet Volume 10.3 fl Immature Granulocytes % 0.500 % Neutrophils % 66.8 % Lymphocytes % 22.8 % Monocytes % 9.1 % Eosinophils % 0.4 % Basophils % 0.4 % Nucleated Red Blood Cells % 0.0 /100WBC Immature Granulocytes # 0.050 10^3/ul Neutrophils # 6.5 10^3/ul Lymphocytes # 2.2 10^3/ul Monocytes # 0.9 10^3/ul Eosinophils # 0.0 10^3/ul Basophils # 0.0 10^3/ul Nucleated Red Blood Cells # 0.0 10^3/ul Urine Color YELLOW Urine Clarity CLEAR Urine pH 6.0 Urine Specific [place] 1.023 Urine Ketones 1+ mg/dL Urine Nitrite NEGATIVE mg/dL Urine Bilirubin NEGATIVE mg/dL Urine Urobilinogen NEGATIVE mg/dL Urine Leukocyte Esterase TRACE Michelle/ul Urine Microscopic RBC 6 /HPF Urine Microscopic WBC 10 /HPF Urine Bacteria FEW /HPF Urine Hemoglobin NEGATIVE mg/dL Urine Glucose NEGATIVE mg/dL Urine Total Protein 1+ mg/dl Sodium Level 142 mmol/L Potassium Level 4.0 mmol/L Chloride Level 104 mmol/L Carbon Dioxide Level 28 mmol/L Anion Gap 10 Blood Urea Nitrogen 21 mg/dl Creatinine 1.14 mg/dl Est Glomerular Filtrat Rate mL/min mL/min Glucose Level 97 mg/dl Calcium Level 9.4 mg/dl Troponin I 0.012 ng/ml Current Medications Medications Dose Sig/Rajwinder Start Time Status Last (Trade) Ordered Route PRN Stop Time Admin Dose Reason Admin Cephalexin 500 mg ONCE ONCE 04/27/19 (Keflex) PO 13:30 04/27/19 13:31 Procedures/MDM EKG, MONITORS, & DIAGNOSTIC IMAGING: I reviewed and interpreted a 12-lead EKG. Normal sinus rhythm, no ST segment elevations. No T wave inversions. No evidence of cardiac ischemia. LAB INTERPRETATION: I reviewed the laboratory testing and it shows possible UTI MEDICAL DECISION MAKING: The patient has very nonspecific complaints of generalized weakness when she wakes up in the morning. The patient had a thorough work-up that was unrevealing only several days ago. The patient has no signs or symptoms concerning for infectious process. She has no chest pain to suggest cardiac etiology. Her symptoms are not consistent with acute stroke. There is some anxiety playing a role here in the emergency room setting. Repeat laboratory testing would be reasonable but very low pretest probability for emergent medical condition. Further outpatient work-up for this would likely be necessary and appropriate. ER COURSE: * Laboratory testing and diagnostic imaging is otherwise unrevealing. The patient is safe for discharge. There is a possible urinary tract infection of the patient has no urinary symptoms. Urine culture is been sent. First dose of Keflex given. A trial of Keflex might be reasonable. CONSULTATION: [None] DISPOSITION PLAN: Patient is safe for discharge home. Family to pick her up. Discharge medication includes Keflex Departure Diagnosis: Primary Impression: Generalized weakness Additional Impression: UTI (urinary tract infection) Urinary tract infection type: acute cystitis Hematuria presence: without hematuria Qualified Codes: N30.00 - Acute cystitis without hematuria Condition: Stable Patient Instructions: Understanding Urinary Tract Infections (UTIs) Referrals: [facility] YOU HAVE RECEIVED A MEDICAL SCREENING EXAM AND THE RESULTS INDICATE THAT YOU DO NOT HAVE A CONDITION THAT REQUIRES URGENT TREATMENT IN THE EMERGENCY DEPARTMENT. FURTHER EVALUATION AND TREATMENT OF YOUR CONDITION CAN WAIT UNTIL YOU ARE SEEN IN YOUR DOCTORS OFFICE WITHIN THE NEXT 1-2 DAYS. IT IS YOUR RESPONSIBILITY TO MAKE AN APPOINTMENT FOR FOLOW-UP CARE. IF YOU HAVE A PRIMARY DOCTOR --you should call your primary doctor and schedule an appointment IF YOU DO NOT HAVE A PRIMARY DOCTOR YOU CAN CALL OUR PHYSICIAN REFERRAL HOTLINE AT IF YOU CAN NOT AFFORD TO SEE A PHYSICIAN YOU CAN CHOSE FROM THE FOLLOWING [facility] [address] [facility]. [facility] [address] [facility] [facility] [address] [facility] [address] [facility] [address] [facility]. [facility] [address] [facility]. [facility] YOU HAVE RECEIVED A MEDICAL SCREENING EXAM AND THE RESULTS INDICATE THAT YOU DO NOT HAVE A CONDITION THAT REQUIRES URGENT TREATMENT IN THE EMERGENCY DEPARTMENT. FURTHER EVALUATION AND TREATMENT OF YOUR CONDITION CAN WAIT UNTIL YOU ARE SEEN IN YOUR DOCTORS OFFICE WITHIN THE NEXT 1-2 DAYS. IT IS YOUR RESPONSIBILITY TO MAKE AN APPOINTMENT FOR FOLOW-UP CARE. IF YOU HAVE A PRIMARY DOCTOR --you should call your primary doctor and schedule and appointment IF YOU DO NOT HAVE A PRIMARY DOCTOR YOU CAN CALL OUR PHYSICIAN REFERRAL HOTLINE AT . IF YOU CAN NOT AFFORD TO SEE A PHYSICIAN YOU CAN CHOSE FROM THE FOLLOWING [facility] INSTITUTIONS: [facility] [address] [place] [address] [facility] [address] [place] [address] [facility] + [address] [place] [address] Additional Instructions: Call your primary care doctor TOMORROW for an appointment during the next 1 WEEK .Tell the typing secretary that you were referred from this facility.See the doctor sooner or return here if your condition worsens before your appointment time. TRISHA OZUNA MD Apr 27, 2019 13:33
[2019-04-27 13:52] VITALS: BP 155/72; PULSE 70; RESP 20
== END 2019-04-27 14:20 | disposition home or self-care (01) ==
LOC: E/R 11:46
DX: N30.00 Acute cystitis without hematuria (principal); E03.9 Hypothyroidism, unspecified; I10 Essential (primary) hypertension; R40.2142 Coma scale, eyes open, spontaneous, at arrival to emergency department; R40.2252 Coma scale, best verbal response, oriented, at arrival to emergency department; R40.2362 Coma scale, best motor response, obeys commands, at arrival to emergency department; Z79.01 Long term (current) use of anticoagulants; Z95.0 Presence of cardiac pacemaker; Z98.61 Coronary angioplasty status
CPT/HCPCS: 36415; 80048; 81001; 84484; 85025; 87086; 93005